=== PATIENT | male | born 1990 | race Caucasian/White ===

== ENCOUNTER 2019-02-14 17:34 | Emergency (ER) | payer BC ==
--- NOTE | 2019-02-14 17:46 | EDM.PDOC ---
ED HPI GENERAL MEDICAL PROBLEM - General Chief Complaint: Back Pain or Injury Stated Complaint: BACK PAIN Time Seen by Provider: 02/14/19 17:36 Source of Information: Reports: Patient History Limitations: Reports: No Limitations - History of Present Illness INITIAL COMMENTS - FREE TEXT/NARRATIVE: HISTORY AND PHYSICAL: History of present illness: Patient is a 28-year-old male who presents to the emergency room with complaints of lumbar back pain which radiates into his right hip. He states he has a history of chronic back pain which she has been dealing with intermittently over the past 10-15 years. He states he last had imaging approximately 6 years ago which she said was normal. He does occasionally have flares where his back will cause pain lasting anywhere from a few days to several weeks. He states that he has been having this pain for approximately 4- 6 weeks which has not been alleviated with [id number] products. He denies any new injury, trauma or falls. He denies any numbness or tingling to his distal extremities. Denies any urinary or fecal incontinence. Patient denies any fever, chills, headache, change in vision, syncope or near syncope. Denies any chest pain, back pain, shortness of breath or cough. Denies any abdominal pain, nausea, vomiting, diarrhea, constipation or dysuria. Has not noted any blood in urine or stool. Patient has been eating and drinking appropriately. Review of systems: As per history of present illness and below otherwise all systems reviewed and negative. Past medical history: As per history of present illness and as reviewed below otherwise noncontributory. Surgical history: As per history of present illness and as reviewed below otherwise noncontributory. Social history: See social history for further information Family history: As per history of present illness and as reviewed below otherwise noncontributory. Physical exam: General: Well-developed and well-nourished 28-year-old male. Alert and oriented. Nontoxic appearing and in no acute distress. HEENT: Atraumatic, normocephalic, pupils equal and reactive bilaterally, negative for conjunctival pallor or scleral icterus, mucous membranes moist, TMs normal bilaterally, throat clear, neck supple, nontender, trachea midline. No drooling or trismus noted. No meningeal signs. No hot potato voice noted. Lungs: Clear to auscultation, breath sounds equal bilaterally, chest nontender. Heart: S1S2, regular rate and rhythm without overt murmur Abdomen: Soft, nondistended, nontender. Negative for masses or hepatosplenomegaly. Negative for costovertebral tenderness. Pelvis: Stable nontender. Genitourinary: Deferred. Rectal: Deferred. Skin: Intact, warm, dry. No lesions or rashes noted. Extremities: Atraumatic, moves all extremities per self without difficulty or deficits, negative for cords or calf pain. Neurovascular unremarkable. C-spine/Back: No pinpoint vertebral tenderness upon palpation. No crepitus, step -offs or obvious deformities. Paraspinous tenderness to the right lower lumbar region going into the right gluteus muscle. Patient is ambulatory into the emergency room without difficulty or deficits. He is able to walk on his heels and toes. Denies any urinary or fecal incontinence Neuro: Awake, alert, oriented. Cranial nerves II through XII unremarkable. Cerebellum unremarkable. Motor and sensory unremarkable throughout. Exam nonfocal. Notes: Lumbar spine x-ray shows mild chronic changes but no acute osseous abnormalities. We'll give the patient Flexeril and tramadol for pain management. Prescription medications were reviewed and discussed. Supportive care measures were reviewed and discussed. Voices understanding and is agreeable to plan of care. Denies any further questions or concerns at this time. Diagnostics: [employer]: Norflex, Toradol Prescription: Flexeril (#30) Tramadol (#20) Impression: Lumbar back pain, acute on chronic Plan: 1. The medication you received as an injection today does cause drowsiness so do not drive for the remaining day 2. When resting please lay on a flat firm surface. Limit your immobility to prevent muscle stiffness, get up to ambulate/move around/gentle stretching multiple times throughout the day. May alternate heat and ice to the painful area and 3. Tylenol as needed for back pain. Otherwise take the prescribed Flexeril and Tramadol as directed. These medication may cause drowsiness a do not take these medications together - Do not take either will driving her needing to be functioning outside of the house. 4. Please follow-up with your primary care provider as we discussed. Return to the ED as needed and as discussed. Definitive disposition and diagnosis as appropriate pending reevaluation and review of above. Right Low Back Pain Score (Numeric/FACES): 9 - Related Data Allergies Allergy/AdvReac Type Severity Reaction Status Date / Time No Known Allergies Allergy Verified 02/14/19 17:44 Home Meds: Home Meds . [No Known Home Meds] 02/14/19 [History] ED ROS GENERAL - Review of Systems Review Of Systems: ROS reveals no pertinent complaints other than HPI. ED EXAM,LOWER BACK PAIN/INJURY - Physical Exam Exam: See Below (See dictation) Course - Vital Signs Last Recorded V/S: Last Vital Signs Temp 97.1 F 02/14/19 17:45 Pulse 64 02/14/19 17:45 Resp 18 02/14/19 17:45 BP 147/91 H 02/14/19 17:45 Pulse Ox 96 02/14/19 17:45 - Orders/Labs/Meds Meds: Medications Discontinued Medications Generic Name Dose Route Start Last Admin Trade Name Minerva PRN Reason Stop Dose Admin Ketorolac Tromethamine 60 mg 02/14/19 17:53 02/14/19 17:59 Toradol IM 02/14/19 17:54 Not Given ONETIME ONE Ketorolac Tromethamine 60 mg 02/14/19 17:53 02/14/19 18:03 Toradol IM 02/14/19 17:54 60 mg ONETIME ONE Administration Orphenadrine Citrate 60 mg 02/14/19 17:57 02/14/19 18:04 Norflex IM 02/14/19 17:58 60 mg NOW STA Administration Departure - Departure Time of Disposition: 18:42 Disposition: Home, Self-Care 01 Clinical Impression: Lumbar back pain - Discharge Information Instructions: Acute Back Pain, Adult Referrals: PCP,Unknown [Primary Care Provider] - Forms: ED Department Discharge Additional Instructions: The following information is given to patients seen in the emergency department who are being discharged to home. This information is to outline your options for follow-up care. We provide all patients seen in our emergency department with a follow-up referral. The need for follow-up, as well as the timing and circumstances, are variable depending upon the specifics of your emergency department visit. If you don't have a primary care physician on staff, we will provide you with a referral. We always advise you to contact your personal physician following an emergency department visit to inform them of the circumstance of the visit and for follow-up with them and/or the need for any referrals to a consulting specialist. The emergency department will also refer you to a specialist when appropriate. This referral assures that you have the opportunity for follow-up care with a specialist. All of these measure are taken in an effort to provide you with optimal care, which includes your follow-up. Under all circumstances we always encourage you to contact your private physician who remains a resource for coordinating your care. When calling for follow-up care, please make the office aware that this follow-up is from your recent emergency room visit. If for any reason you are refused follow-up, please contact the [facility] Emergency Department at and asked to speak to the emergency department charge nurse. [facility] [address] [place] [id number] [facility] [address] [place] [id number] 1. The medication you received as an injection today does cause drowsiness so do not drive for the remaining day 2. When resting please lay on a flat firm surface. Limit your immobility to prevent muscle stiffness, get up to ambulate/move around/gentle stretching multiple times throughout the day. May alternate heat and ice to the painful area and 3. Tylenol as needed for back pain. Otherwise take the prescribed Flexeril and Tramadol as directed. These medication may cause drowsiness a do not take these medications together - Do not take either will driving her needing to be functioning outside of the house. 4. Please follow-up with your primary care provider as we discussed. Return to the ED as needed and as discussed.
[2019-02-14] MEDS ORDERED: Ketorolac 60 MG/2 ML SDV IM ONE ×2 (17:53)
--- NOTE | 2019-02-14 18:35 | CR ---
INDICATION: Low back pain. TECHNIQUE: Three views. COMPARISON: None. FINDINGS: There are 5 non rib-bearing lumbar type vertebral bodies present. Partial sacralization of L5 on the left. Vertebral body heights are well maintained. There is a mild leftward curvature centered at about the L3-4 level. Mild diminished disc heights at L4-5 and L5-S1. No evidence of spondylolisthesis. No intrinsic bone lesion. IMPRESSION: Mild chronic changes no acute osseous abnormality identified. Dictated by Paddy Gallegos MD @ Feb 14 2019 6:30PM Signed by Dr. Paddy Gallegos @ Feb 14 2019 6:32PM
== END 2019-02-14 18:54 | disposition home or self-care (01) ==
LOC: MW.ED 17:34
DX: M54.5 Low back pain (principal); G89.29 Other chronic pain
CPT/HCPCS: 72100; 96372; 99283; J1885; J2360